=== PATIENT | female | born 1975 | race Caucasian/White ===

== ENCOUNTER 2017-08-23 16:05 | Emergency (ER) | payer MEDICAID | END 2017-08-23 17:07 | disposition home or self-care (01) | LOC: E/R 17:07 | DX: J06.9 Acute upper respiratory infection, unspecified (principal) | CPT/HCPCS: 99283; Z7502 ==

== ENCOUNTER 2018-09-27 16:55 | Emergency (ER) | payer SELFPAY, MEDICAID | END 2018-09-27 20:02 | disposition left against medical advice (07) | LOC: E/R 16:55 | DX: Z53.21 Procedure and treatment not carried out due to patient leaving prior to being seen by health care provider (principal) ==

== ENCOUNTER 2018-10-14 11:12 | Outpatient (CLI) | payer MEDICAID ==
[2018-10-14 11:32] LABS: ADD UMIC NO; UR ASCORBIC ACID NEGATIVE (NEGATIVE); UR BILIRUBIN (Dip) NEGATIVE (NEGATIVE); UR BLOOD (Dip) NEGATIVE (NEGATIVE); UR CLARITY CLEAR (CLEAR); UR COLOR STRAW (YELLOW); UR GLUCOSE (Dip) NEGATIVE (NEGATIVE); UR KETONES (Dip) NEGATIVE (NEGATIVE); UR LEUKOCYTE ESTERASE (Dip) NEGATIVE Leu/ul (NEGATIVE); UR NITRITE (Dip) NEGATIVE (NEGATIVE); UR SPECIFIC GRAVITY (Dip) 1.002 (1.003-1.030); UR TOTAL PROTEIN (Dip) NEGATIVE (NEGATIVE); UR UROBILINOGEN (Dip) NEGATIVE (NEGATIVE)
== END 2018-10-14 13:08 | disposition home or self-care (01) ==
LOC: OBT 11:12 → L-D 11:14 → OBT 13:08
DX: O26.892 Other specified pregnancy related conditions, second trimester (principal); R10.2 Pelvic and perineal pain; O09.522 Supervision of elderly multigravida, second trimester; Z3A.21 21 weeks gestation of pregnancy
CPT/HCPCS: 76817; 81003

== ENCOUNTER 2019-01-10 17:36 | Outpatient (CLI) | payer MEDICAID ==
[2019-01-10 18:21] LABS: ADD UMIC NO; UR ASCORBIC ACID NEGATIVE (NEGATIVE); UR BILIRUBIN (Dip) NEGATIVE (NEGATIVE); UR BLOOD (Dip) NEGATIVE (NEGATIVE); UR CLARITY CLEAR (CLEAR); UR COLOR COLORLESS (YELLOW); UR GLUCOSE (Dip) NEGATIVE (NEGATIVE); UR KETONES (Dip) NEGATIVE (NEGATIVE); UR LEUKOCYTE ESTERASE (Dip) NEGATIVE Leu/ul (NEGATIVE); UR NITRITE (Dip) NEGATIVE (NEGATIVE); UR SPECIFIC GRAVITY (Dip) 1.001 (1.003-1.030); UR TOTAL PROTEIN (Dip) NEGATIVE (NEGATIVE); UR UROBILINOGEN (Dip) NEGATIVE (NEGATIVE)
[2019-01-10] MEDS: LACTATED RINGER'S 1,000 ML IV (19:32)
[2019-01-10] MEDS: TERBUTALINE 1 MG/ML INJ SC (21:08)
== END 2019-01-10 22:00 | disposition home or self-care (01) ==
LOC: OBT 17:36 → L-D 17:36 → OBT 22:00
DX: O26.893 Other specified pregnancy related conditions, third trimester (principal); O47.03 False labor before 37 completed weeks of gestation, third trimester; Z3A.34 34 weeks gestation of pregnancy; O09.523 Supervision of elderly multigravida, third trimester
CPT/HCPCS: 76815; 76817; 76818; 81003; 96360; 96372

== ENCOUNTER 2019-02-04 15:39 | Outpatient (CLI) | payer MEDICAID | END 2019-02-04 18:54 | disposition home or self-care (01) | LOC: OBT 15:39 → L-D 15:42 → OBT 18:54 | DX: O62.9 Abnormality of forces of labor, unspecified (principal); O09.523 Supervision of elderly multigravida, third trimester; Z3A.38 38 weeks gestation of pregnancy | CPT/HCPCS: Z7500 ==

== ENCOUNTER 2019-02-08 15:46 | Inpatient (IN) | payer MEDICAID ==
[2019-02-08 19:53] LABS: ADD MAN DIFF? NO
[2019-02-08] MEDS: LACTATED RINGER'S 1,000 ML IV (19:54)
[2019-02-08 19:58] LABS: WHITE BLOOD COUNT 8.4 10^3/ul (4.8-10.8)
[2019-02-08 19:58] LABS: BASOPHILS % 0.2 % (0.0-2.0); EOSINOPHILS % 0.2 % (0.0-7.0); HEMATOCRIT 36.2 % (37.0-47.0); HEMOGLOBIN 12.1 g/dl (12.0-16.0); LYMPHOCYTES % 23.6 % (15.0-51.0); MEAN CORPUSCULAR HEMOGLOBIN 30.6 pg (29.0-33.0); MEAN CORPUSCULAR HGB CONC 33.4 g/dl (32.0-37.0); MEAN CORPUSCULAR VOLUME 91.6 fl (82.0-101.0); MEAN PLATELET VOLUME 10.5 fl (7.4-10.4); MONOCYTE # 0.4 10^3/ul (0.3-0.9); NEUTROPHIL # 5.9 10^3/ul (1.6-7.5); NEUTROPHILS % 70.4 % (39.0-77.0); PLATELET COUNT 272 10^3/UL (140-415); RED BLOOD COUNT 3.95 10^6/ul (4.20-5.40); RED CELL DISTRIBUTION WIDTH 13.7 % (11.5-14.5)
[2019-02-08] MEDS ORDERED: LIDOCAINE 1% (MPF) 30 ML INJ INJ (20:00)
[2019-02-08] MEDS ORDERED: MINERAL OIL LIGHT 10 ML VIAL TOP (20:00)
[2019-02-08] MEDS ORDERED: CARBOPROST 250 MCG INJ IM (20:00)
[2019-02-08] MEDS ORDERED: MISOPROSTOL 200 MCG TAB PR (20:00)
[2019-02-08] MEDS ORDERED: BUTORPHANOL 2 MG INJ IV (20:00)
[2019-02-08] MEDS ORDERED: OXYTOCIN 30 UNITS/LR 500 ML IV (20:00)
[2019-02-08 20:17] LABS: INR 0.92; PROTIME 12.5 Sec (11.9-14.9)
[2019-02-08 20:18] LABS: PARTIAL THROMBOPLASTIN TIME 26.4 Sec (23.0-35.0)
[2019-02-09] MEDS: LACTATED RINGER'S 1,000 ML IV ×3 (03:31→19:35)
[2019-02-09] MEDS: OXYTOCIN 30 UNITS/LR 500 ML IV (08:42)
[2019-02-09 09:52] LABS: HEPATITIS B SURFACE ANTIGEN NEGATIVE (NEGATIVE)
[2019-02-09 20:56] LABS: RAPID PLASMA REAGIN NONREACTIVE (NR)
[2019-02-10] MEDS: LACTATED RINGER'S 1,000 ML IV ×2 (01:43→04:10)
[2019-02-10] MEDS ORDERED: FENTAnyl 2MCG/ML-ROPIV 0.2% 100 ML (02:38)
[2019-02-10] MEDS ORDERED: NALOXONE (0.4 MG/ML) INJ IV (03:00)
[2019-02-10] MEDS ORDERED: ONDANSETRON 4 MG INJ IV (03:00)
[2019-02-10] MEDS ORDERED: FENTAnyl 2MCG/ML-ROPIV 0.2% 100 ML BAG EPI (03:00)
[2019-02-10] MEDS: METHYLERGONOVINE 0.2 MG INJ IM (05:17)
[2019-02-10] MEDS: OXYTOCIN 30 UNITS/LR 500 ML IV ×3 (05:29→07:00)
[2019-02-10] MEDS ORDERED: OXYTOCIN 30 UNITS/LR 500 ML IV (07:00)
[2019-02-10] MEDS ORDERED: CARBOPROST 250 MCG INJ IM (07:00)
[2019-02-10] MEDS ORDERED: ACETAMINOPHEN 325 MG TAB PO ×2 (07:00)
[2019-02-10] MEDS ORDERED: DIBUCAINE 1% 30 GM OINT TOP (07:00)
[2019-02-10] MEDS ORDERED: MISOPROSTOL 200 MCG TAB PR (07:00)
[2019-02-10] MEDS ORDERED: METHYLERGONOVINE 0.2 MG INJ IM (07:00)
[2019-02-10] MEDS: LANOLIN HPA 1 PKT TOP (09:47)
[2019-02-10] MEDS: IBUPROFEN 600 MG TAB PO ×2 (09:47→20:08)
[2019-02-10] MEDS: BENZOCAINE 20% 56 ML SPRAY TOP (09:47)
[2019-02-10] MEDS: WITCH HAZEL/GLYCERIN PAD PR (09:48)
[2019-02-10] MEDS: LACTATED RINGER'S 1,000 ML IV* ×3 (09:48→22:31)
[2019-02-11] MEDS: IBUPROFEN 600 MG TAB PO ×3 (02:23→17:36)
[2019-02-11] MEDS ORDERED: ONDANSETRON 4 MG INJ IV (03:00)
[2019-02-11] MEDS: LACTATED RINGER'S 1,000 ML IV* ×3 (06:31→22:31)
[2019-02-11 07:28] LABS: ADD MAN DIFF? NO
[2019-02-11 07:33] LABS: WHITE BLOOD COUNT 8.9 10^3/ul (4.8-10.8)
[2019-02-11 07:33] LABS: BASOPHILS % 0.1 % (0.0-2.0); EOSINOPHILS # 0.1 10^3/ul (0.0-0.5); EOSINOPHILS % 0.6 % (0.0-7.0); HEMATOCRIT 32.1 % (37.0-47.0); HEMOGLOBIN 10.5 g/dl (12.0-16.0); LYMPHOCYTES # 1.9 10^3/ul (0.8-2.9); LYMPHOCYTES % 21.1 % (15.0-51.0); MEAN CORPUSCULAR HEMOGLOBIN 30.3 pg (29.0-33.0); MEAN CORPUSCULAR HGB CONC 32.7 g/dl (32.0-37.0); MEAN CORPUSCULAR VOLUME 92.5 fl (82.0-101.0); MEAN PLATELET VOLUME 10.6 fl (7.4-10.4); MONOCYTE # 0.5 10^3/ul (0.3-0.9); MONOCYTES % 5.6 % (0.0-11.0); NEUTROPHIL # 6.4 10^3/ul (1.6-7.5); PLATELET COUNT 251 10^3/UL (140-415); RED BLOOD COUNT 3.47 10^6/ul (4.20-5.40); RED CELL DISTRIBUTION WIDTH 13.8 % (11.5-14.5)
[2019-02-11] MEDS: SENNA/DOCUSATE NA (8.6MG/50MG) TAB PO (20:58)
[2019-02-11] MEDS: MAGNESIUM HYDROXIDE 30ML CUP PO (20:58)
[2019-02-12] MEDS: SENNA/DOCUSATE NA (8.6MG/50MG) TAB PO (08:56)
[2019-02-12] MEDS: IBUPROFEN 600 MG TAB PO (09:02)
== END 2019-02-12 11:51 | disposition home or self-care (01) | DRG 807 ==
LOC: OBT 15:46 → PP1 02-10 06:30 → L-D 15:46 → OBT 17:48 → L-D 17:48
PROVIDERS: Obstetrics & Gynecology
PROC: 10E0XZZ Delivery of Products of Conception, External Approach (ICD-10-PCS; principal; 2019-02-10)
PROC: 0HQ9XZZ Repair Perineum Skin, External Approach (ICD-10-PCS; 2019-02-10)
DX: O70.0 First degree perineal laceration during delivery (principal); Z37.0 Single live birth; Z3A.38 38 weeks gestation of pregnancy
CPT/HCPCS: 62322; 76815; 76818; 85025; 85610; 85730; 86592; 86900; 86901; 87340